=== PATIENT | female | born 1985 | race Caucasian/White ===

== ENCOUNTER 2017-09-21 13:38 | Emergency (ER) | payer OTHER ==
[~2017-09-21] VITALS: Ht 170.2 cm; Wt 68.0 kg
[2017-09-21 14:18] VITALS: BP 130/86
== END 2017-09-21 14:18 | disposition home or self-care (01) ==
LOC: EDBD 13:38 → ED 13:38
DX: J09.X2 Influenza due to identified novel influenza A virus with other respiratory manifestations (principal)

== ENCOUNTER 2019-07-29 18:28 | Emergency (ER) | payer OTHER ==
[~2019-07-29] VITALS: Ht 170.2 cm; Wt 75.8 kg
[2019-07-29 18:53] VITALS: Ht 170.2 cm; Wt 75.8 kg
[2019-07-29 19:56] LABS: BASOPHIL % 0.7 % (0-2)
[2019-07-29 20:05] LABS: CALCIUM 8.7 mg/dL (8.5-10.1); CARBON DIOXIDE 25.6 mmol/L (21-32); CREATININE SERUM 1.3 mg/dL (0.6-1.0); POTASSIUM SERUM 4.8 mmol/L (3.5-5.1)
[2019-07-29 20:19] LABS: BILIRUBIN TOTAL 1.04 mg/dL (0.20-1.00); FREE T4 1.41 ng/dL (0.76-1.46)
[2019-07-29 20:31] LABS: PLATELET COUNT 297 x10^3mcL (130-400); RED CELL DISTRIBUTION WIDTH 21.1 % (11.5-14.5)
[2019-07-29 20:51] LABS: rbc morphology (normal/abnorm) ABNORMAL (NORMAL)
[2019-07-29 21:35] LABS: UA SPECIFIC GRAVITY >=1.030 (1.005-1.035); microscopic required? YES; urine erythrocyte 3+ (NEGATIVE)
[2019-07-30 03:44] VITALS: BP 146/110
== END 2019-07-30 03:44 | disposition home or self-care (01) ==
LOC: ED 18:28
PROVIDERS: Emergency Medicine
DX: M79.662 Pain in left lower leg (principal); M79.661 Pain in right lower leg; M79.642 Pain in left hand; M79.641 Pain in right hand; L30.9 Dermatitis, unspecified
CPT/HCPCS: 36415; 84439; 85378; J7030; Q0092; Q9967